=== PATIENT | female | born 1980 | race Caucasian/White ===

== ENCOUNTER 2021-11-04 07:40 | Outpatient (CLI) | payer BC | END 2021-11-04 07:41 | disposition home or self-care (01) | LOC: CSHULT 07:40 | PROVIDERS: ATTEND Internal Medicine Gastroenterology | DX: R11.0 Nausea (principal); R19.4 Change in bowel habit; K92.1 Melena; E73.9 Lactose intolerance, unspecified; R79.89 Other specified abnormal findings of blood chemistry | CPT/HCPCS: 76705 ==